=== PATIENT | male | born 1980 | race Caucasian/White ===

== ENCOUNTER 2017-01-12 13:49 | Inpatient (IN) | payer BC ==
[~2017-01-12] VITALS: Ht 185.4 cm; Wt 102.3 kg
[2017-01-12 14:14] LABS: BASOPHILS 0.4 % (0-2); EOSINOPHILS 1.5 % (0-7); HEMATOCRIT 48.2 % (42.0-54.0); HEMOGLOBIN 16.7 g/dL (13.5-17.5); IMMATURE GRANULOCYTES 0.4 % (0-5); LYMPHOCYTES 32.7 % (15-50); MCH 30.2 pg (26.0-34.0); MCHC 34.6 g/dL (31.0-37.0); MCV 87.2 fL (80.0-100.0); MEAN PLATELET VOLUME 9.6 fL (7.4-10.4); MONOCYTES 5.1 % (2-11); NEUTROPHILS 59.9 % (40-80); RBC 5.53 10x6/uL (4.20-6.10); RDW 13.8 % (11.5-14.5); WBC 8.4 10x3/uL (4.8-10.8)
[2017-01-12 14:15] LABS: PLATELET COUNT 197 10x3/uL (130-400)
[2017-01-12 14:29] LABS: APTT 24.5 SECONDS (22.8-39.4); INR 1.03 (0.85-1.17); PROTIME 13.4 SECONDS (11.6-15.0)
[2017-01-12 14:31] LABS: ANION GAP 9.3 mmol/L (8-16); BILIRUBIN - TOTAL 0.94 mg/dL (0.2-1.3); CALCIUM 8.6 mg/dL (8.5-10.1); CARBON DIOXIDE 30.6 mmol/L (21.0-32.0); CREATININE - SERUM 1.4 mg/dL (0.6-1.3); POTASSIUM - SERUM 3.9 mmol/L (3.5-5.1); PROTEIN - SERUM 6.9 g/dL (6.4-8.2)
[2017-01-12 21:47] LABS: APPEARANCE CLEAR (CLEAR); COLOR YELLOW (YELLOW); LEUKOCYTE ESTERASE NEGATIVE (NEGATIVE); NITRITE NEGATIVE (NEGATIVE); SPECIFIC GRAVITY 1.015 (1.005-1.020)
[2017-01-12 21:48] LABS: BILIRUBIN NEGATIVE (NEGATIVE); GLUCOSE NEGATIVE (NEGATIVE); KETONE NEGATIVE (NEGATIVE); PROTEIN NEGATIVE (NEGATIVE); UROBILINOGEN NORMAL (NORMAL)
[2017-01-12 21:49] LABS: BACTERIA FEW /hpf (NONE SEEN); EPITHELIAL CELLS 0-5 /hpf (0-5); MUCUS >1+ /lpf (NONE SEEN); RED CELLS - URINE 25-50 /hpf (0-5); WHITE CELLS - URINE 0-5 /hpf (0-5)
--- NOTE | 2017-01-12 22:40 | NUR ---
RECEIVED PT TO FLOOR FROM ER VIA STRETCHER. PT AMBULATED FROM STRETCHER TO BED. SPLINT/SLING TO RT ARM. LACERATION FOREHEAD W/BANDAIDS. LACERATION TO BUTTOCKS SUTURED/GLUED. SCROTUM SWOLLEN/BRUISED. ELEVATED RT ARM ON PILLOW AND PLACED ICE PACK ON UPPER ARM. PT RATES PAIN 3/10 AT THIS TIME. REVIEWED HOME MEDS AND HISTORY. CALL LIGHT AND TRAPEZE BAR IN REACH. WILL CONTINUE TO MONITOR.
[2017-01-12] MEDS ORDERED: XANAX0.5 MG PO (22:46)
[2017-01-12] MEDS ORDERED: [UNRECOGNIZED DRUG - OTHER] SL (22:50)
[2017-01-12] MEDS ORDERED: TESTOSTERON200 MG/ML IM (22:51)
[2017-01-12] MEDS ORDERED: EXCEDRIN EXTRA1 TAB PO (22:52)
[2017-01-12 23:19] VITALS: BP 144/82; Ht 185.4 cm; Wt 102.3 kg
[2017-01-13 00:10] VITALS: BP 144/82
--- NOTE | 2017-01-13 01:00 | NUR ---
PT STANDING UP, ANXIOUS C/O PAIN RIGHT ARM. STATES HE "THINKS SOMETHING HAS MOVED" AND THAT HE IS UNABLE TO MOVE FINGERS. OBSERVED PTS RT ARM WAS HANGING LOW IN SLING. HELPED PT TO MANUEVER ARM BACK INTO PROPER PLACE IN SLING. ONCE PT'S ARM WAS IN BETTER POSITION AND SUPPORTED WITH PILLOWS, HE WAS ABLE TO MOVE RIGHT HAND/FINGERS AGAIN AND STATED PAIN SUBSIDED. CAP REFILL < 3 SEC. PLACED ICE PACKS TO UPPER ARM TO REDUCE SWELLING. NO OTHER NEEDS. WILL CONTINUE TO MONITOR AND GIVE PAIN MEDS SOON AVAILABLE.
[2017-01-13 04:00] VITALS: BP 137/77
--- NOTE | 2017-01-13 07:49 | NUR ---
PT STANDING UP BESIDE BED. RATES PAIN 10/10. TORADOL AND VALIUM GIVEN PER ORDERS. ASSISTED PT BACK IN BED. VERY UNCOMFORTABLE. POSITIONED PILLOWS UNDER ARM. WILL CONTINUE TO MONITOR.
--- NOTE | 2017-01-13 09:55 | NUR ---
PT REPORTS PAIN OF 10/10 CONSTANT ON RIGHT ARM. OFFERED PERCOCET 10MG BUT PATIENT WANTED TO TAKE DILAUDID 1MG IV INSTEAD. HE STATES THAT PERCOCET IS NOT GOING TO DO ANYTHING TO HIS PAIN.DILAUDID 1MG GIVEN. WILL CONTINUE TO MONITOR PAIN.
[2017-01-13 10:19] VITALS: BP 124/71
--- NOTE | 2017-01-13 11:11 | NUR ---
SPOKE TO DR. GONCALVES ABOUT PT CONCERNS REGARDING HIS PAIN MANAGEMENT. PT STATES THAT HE TAKES SUBOXONE AT HOME AND HIS LAST DOSE WAS YESTERDAY. HE WANTS TO SEE IF DIFFERENT PAIN MEDICATIONS CAN BE GIVEN TO HIM TO HELP WITH PAIN. CURRENTLY THE PAIN MEDICATIONS DO NOT WORK FOR VERY LONG. TRANSFERRED DR. GONCALVES'S CALL TO PATIENT'S ROOM SO HE COULD SPEAK TO HIM. STATED THAT THEY HAD ALSO TALKED TO DR. HARDING AND THAT HE WOULD BE STOPPING BY TO CHECK ON PATIENT.
--- NOTE | 2017-01-13 13:30 | NUR ---
PT REPORTS PAIN 8/10. DILAUDID LOAN [employer] STARTED AT 0.2 MG Q 10 MINUTES WITH 4MG/4HR LOCKOUT. PT REPOSITIONED IN BED. PILLOW UNDER RIGHT ARM. NO OTHER NEEDS AT THIS TIME.
[2017-01-13 14:08] VITALS: BP 133/65
--- NOTE | 2017-01-13 15:15 | NUR ---
PT RATED PAIN 7/10. ASKED FOR A PERCOCET FOR BREAK THROUGH PAIN AND VALIUM FOR MUSCLE SPASMS.
--- NOTE | 2017-01-13 16:14 | NUR ---
LEFT AC PERIPHERAL IV DICONTINUED WITH CATHETER INTACT. 20 GAUGE PERIPHERAL IV INSERT ON LEFT WRIST X 1 ATTEMPT. TOLERATED WELL. RATES PAIN 4/10 ON RIGHT ARM. DENIES OTHER NEEDS AT THIS TIME.
[2017-01-13 17:15] VITALS: BP 157/83
[2017-01-13 20:00] VITALS: BP 121/95
--- NOTE | 2017-01-13 20:49 | NUR ---
REC'D STANDING IN BATHROOM AWAKE AND ALERT. RESP EVEN AND UNLABORED WITH NO DISTRESS NOTED. CAN EXPRESS NEEDS AND WANTS. C/O PAIN RATING 10/10 ON PAIN SCALE TO RIGHT ARM. ASSESSMENT COMPLETED. FAMILY AT BEDSIDE. WAS MEDICATED WITH PRN PAIN MEDS AT THIS TIME. C/L IN REACH AT BEDSIDE.
[2017-01-14] VITALS: BP 137/61
--- NOTE | 2017-01-14 03:00 | NUR ---
PATIENT RESTING WITH EYES CLOSED AND NO VISIBLE SIGNS OF DISTRESS. BED IN LOWEST POSITION AND CALL LIGHT WITHIN REACH.
[2017-01-14 04:00] VITALS: BP 150/62
--- NOTE | 2017-01-14 07:45 | NUR ---
PT AWAKE AND ALERT. RATES PAIN 7/10. DILAUDID ALLERGIST/IMMUNOLOGIST IN USE 0.2 Q10MIN WITH 4MG/4HR LOCKOUT. ADMINISTER VALIUM PER PATIENT'S REQUEST. VERY UNCOMFORTABLE AT THIS TIME. WILL CONTINUE TO MONITOR.
[2017-01-14 10:21] VITALS: BP 128/57
--- NOTE | 2017-01-14 12:31 | NUR ---
URINE SPECIMEN COLLECTED.
[2017-01-14 12:47] VITALS: BP 104/77
[2017-01-14 13:09] LABS: UDS - AMPHET NEGATIVE QUAL (NEGATIVE); UDS - BARB NEGATIVE QUAL (NEGATIVE); UDS - BENZO POSITIVE QUAL (NEGATIVE); UDS - COCAINE NEGATIVE QUAL (NEGATIVE); UDS - METH NEGATIVE QUAL (NEGATIVE); UDS - OPIATE POSITIVE QUAL (NEGATIVE); UDS - PCP NEGATIVE QUAL (NEGATIVE); UDS - THC NEGATIVE QUAL (NEGATIVE)
[2017-01-14 13:16] LABS: APPEARANCE CLEAR (CLEAR); COLOR YELLOW (YELLOW)
[2017-01-14 13:17] LABS: BILIRUBIN NEGATIVE (NEGATIVE); GLUCOSE NEGATIVE (NEGATIVE); KETONE NEGATIVE (NEGATIVE); LEUKOCYTE ESTERASE NEGATIVE (NEGATIVE); NITRITE NEGATIVE (NEGATIVE); PH 7.5 (5.0-6.0); PROTEIN NEGATIVE (NEGATIVE); UROBILINOGEN NORMAL (NORMAL)
--- NOTE | 2017-01-14 14:51 | NUR ---
PT REPORTS A LOT OF PRESSURE ON HIS RIGHT ARM. CALLED DR. GONCALVES AND NOTIFIED OF PATIENTS COMPLAINT. HE SAID TO HAVE PATIENT KEEP PUMPING HIS HAND TO HELP REDUCE THE SWELLING. WILL CONTINUE TO MONITOR.
[2017-01-14 16:48] VITALS: BP 128/59
[2017-01-14 20:00] VITALS: BP 129/53
--- NOTE | 2017-01-14 20:00 | NUR ---
REC'D IN ROOM SITTING IN BED WATCHING TV. NO C/O NOTED RIGHT ARM IN SLING. NO C/O NOTED AT THIS TIME. ASSESSMENT COMPLETED. C/L IN REACH AT BEDSIDE.
[2017-01-15] VITALS: BP 121/63
--- NOTE | 2017-01-15 02:00 | NUR ---
PT RESTING IN BED WITH NO DISTRESS. RESPIRATIONS EVEN AND UNLABORED. SIDE RAILS X 2. BED IS LOW. CALL LIGHT IN REACH.
--- NOTE | 2017-01-15 02:31 | NUR ---
NO CHANGES NOTED AT THIS TIME. RESTING WELL. FAMILY AT BEDSIDE. WILL CONTINUE TO OBSERVE FOR NEEDS. C/L IN REACH AT BEDSIDE.
--- NOTE | 2017-01-15 07:00 | NUR ---
REPORT RECIEVED ASSUMED CARE. PATIENT IN BED WITH IV INTACT. NO COMPLAINTS. FAMILY AT BEDSIDE. CALL LIGHT WITHIN REACH.
[2017-01-15 08:17] VITALS: BP 131/47
--- NOTE | 2017-01-15 08:30 | NUR ---
PATIENT ASSESSMENT COMPLETE, VS STABLE. IV INTACT. PATIENT RECIEVED PERCOCET AND TORADOL FOR PAIN. SLING AND SPLINT TO RIGHT ARM. DRESSING TO BUTTOCKS INTACT. FAMILY AT BEDSIDE, CALL LIGHT WITHIN REACH.
[2017-01-15 09:36] LABS: ALBUMIN 3.3 g/dL (3.4-5.0); ANION GAP 8.3 mmol/L (8-16); BILIRUBIN - TOTAL 0.9 mg/dL (0.2-1.3); CALCIUM 8.1 mg/dL (8.5-10.1); CARBON DIOXIDE 28.7 mmol/L (21.0-32.0); CREATININE - SERUM 1.3 mg/dL (0.6-1.3); PROTEIN - SERUM 6.3 g/dL (6.4-8.2)
[2017-01-15 09:45] LABS: BASOPHILS 0.5 % (0-2); EOSINOPHILS 2.6 % (0-7); HEMOGLOBIN 13.7 g/dL (13.5-17.5); IMMATURE GRANULOCYTES 0.4 % (0-5); LYMPHOCYTES 17.7 % (15-50); MCH 29.8 pg (26.0-34.0); MCHC 33.4 g/dL (31.0-37.0); MCV 89.3 fL (80.0-100.0); MEAN PLATELET VOLUME 9.3 fL (7.4-10.4); MONOCYTES 6.8 % (2-11); PLATELET COUNT 189 10x3/uL (130-400); RBC 4.59 10x6/uL (4.20-6.10); RDW 13.9 % (11.5-14.5); WBC 7.3 10x3/uL (4.8-10.8)
[2017-01-15 12:03] VITALS: BP 138/67
[2017-01-15] MEDS ORDERED: PERCOCET 7.5/321 TAB PO (12:09)
[2017-01-15] MEDS ORDERED: MIRALAX17 GM PO (12:15)
--- NOTE | 2017-01-15 13:40 | NUR ---
PATIENT RECIEVED DC INSTRUCTIONS WITH PRESCRIPTION. NO QUESTIONS AT THIS TIME. IV REMOVED WITH CATH TIP INTACT. FAMILY AT BEDSIDE. CALL LIGHT WITHIN REACH. IS HELPING PATIENT DRESS.
--- NOTE | 2017-01-15 14:00 | NUR ---
PATIENT ESCORTED OUT OF BUILDING VIA WC WITH PERSONAL BELONGINGS TO PRIVATE VEHICLE AT THIS TIME BY [facility]OSP[facility].
--- NOTE | 2017-01-15 15:10 | NUR ---
Wound care teaching for care of wound to perineal area. Sutures are in place. Area is intact with sutures. There is no drainage, redness or odor. Instructed to wash daily with soap and water, rinse well and pat dry. May keep a piece of gauze over sutured area - holding in place with briefs. Pt voiced understanding.
== END 2017-01-15 14:34 | disposition home or self-care (01) | DRG 729 ==
LOC: OBSVTIME → D.ER 13:49 → D.MS 21:41 → D.ER 21:41 → OBSVTIME 21:41 → D.MS 21:57 → OBSVTIME 01-14 16:12 → D.MS 01-15 14:34
PROVIDERS: Emergency Medicine; Family Medicine; ADMIT Emergency Medicine
PROC: 0HQ8XZZ Repair Buttock Skin, External Approach (ICD-10-PCS; principal; 2017-01-12)
DX: S30.22XA Contusion of scrotum and testes, initial encounter (principal); S42.352A Displaced comminuted fracture of shaft of humerus, left arm, initial encounter for closed fracture; V23.4XXA Motorcycle driver injured in collision with car, pick-up truck or van in traffic accident, initial encounter; S31.821A Laceration without foreign body of left buttock, initial encounter; M62.838 Other muscle spasm; R31.9 Hematuria, unspecified; G89.29 Other chronic pain